=== PATIENT | male | born 1985 | race African-American/Black ===

== ENCOUNTER 2022-01-11 12:32 | Outpatient (REF) | payer OTHER, SELFPAY ==
[2022-01-11 14:11] LABS: Anion Gap 13 (12-20); Blood Urea Nitrogen 14 mg/dL (9-16); Calcium 9.7 mg/dL (8.4-10.2); Carbon Dioxide 26 mmol/L (22-29); Chloride 103 mmol/L (96-108); Estimated Glomerular Filt Rate > 60; Glucose Random 96 mg/dL (60-115); Potassium 4.1 mmol/L (3.3-5.1); Sodium 138 mmol/L (135-145)
== END 2022-01-11 12:33 | disposition home or self-care (01) ==
LOC: HO.HMGCLDS 12:32
PROVIDERS: Visit Provider Hospitalist
DX: M54.41 Lumbago with sciatica, right side (principal)
CPT/HCPCS: 36415; 80048